=== PATIENT | male | born 1990 | race Caucasian/White ===

== ENCOUNTER 2018-03-07 22:12 | Emergency (ER) | payer SELFPAY ==
[~2018-03-07 22:12] MED LIST: IBUP600T26 PO; Z.0.NO CURRENT MEDS
[2018-03-07 22:35] VITALS: BP 136/82; PULSE 122; RESP 18; TEMP 98.4; O2SAT 96
== END 2018-03-07 23:36 | disposition left against medical advice (07) ==
LOC: NETRI 22:12
DX: M79.605 Pain in left leg (principal)
CPT/HCPCS: 99281